=== PATIENT | female | born 2000 | race African-American/Black ===

== ENCOUNTER 2020-06-08 17:43 | Emergency (ER) | payer OTHER ==
[2020-06-08 17:56] VITALS: BP 105/72; PULSE 85; TEMP 98.8; BMI 22.4
--- NOTE | 2020-06-08 17:57 | PDOC ---
Rapid Medical Evaluation Time Seen by Provider: 06/08/20 17:53 Medical Evaluation: Allergies Allergy/AdvReac Type Severity Reaction Status Date / Time No Known Allergies Allergy Verified 06/08/20 17:53 06/08/20 17:54 CC: chest tightness, fatigue, sob, currently menstruating (heavy), denies anemia Exam: vss, speaking full sentences, Plan: ekg, labs, urine Discharge Disposition - Diagnosis Chest tightness - Referrals - Patient Instructions - Post Discharge Activity
[2020-06-08 18:52] LABS: BASO % 1.1 % (0-2.0); EOS % 1.5 % (0-4.5); HEMATOCRIT 38.9 % (32.4-45.2); HEMOGLOBIN 12.7 GM/dL (10.7-15.3); LYMPH % 35.6 % (8-40); MCH 31.7 pg (25.7-33.7); MCHC 32.7 g/dl (32.0-36.0); MEAN CELL VOLUME 97.2 fl (80-96); MEAN PLT VOLUME 8.5 fl (7.5-11.1); MONO % 10.4 % (3.8-10.2); NEUT % 51.4 % (42.8-82.8); PLATELET COUNT 379 K/MM3 (134-434); RBC 4.01 M/mm3 (3.60-5.2); RDW 13.1 % (11.6-15.6); WHITE BLOOD COUNT 8.8 K/mm3 (4.0-10.0)
[2020-06-08 18:58] LABS: HCG,QUALITATIVE URINE Negative
[2020-06-08 18:59] LABS: EPI CELLS 29 /uL (0-25.1); HYALINE CASTS 6 /uL (0-3.1); PH,URINE 6.5 (5.0-8.0); URINE APPEARANCE CLOUDY; URINE BACTERIA >9,000 /uL (0-1359); URINE BILIRUBIN NEGATIVE (NEGATIVE); URINE COLOR YELLOW; URINE GLUCOSE (UA) NEGATIVE (NEGATIVE); URINE KETONE TRACE (NEGATIVE); URINE LEUK ESTERASE 1+ (NEGATIVE); URINE NITRITE POSITIVE (NEGATIVE); URINE PROTEIN TRACE (NEGATIVE); URINE RBC 18 /uL (0-23.9); URINE WBC 31 /uL (0-25.8)
[2020-06-08 19:16] LABS: ALBUMIN 3.6 g/dl (3.4-5.0); ALK PHOS 69 U/L (45-117); ANION GAP 6 MMOL/L (8-16); BILIRUBIN,TOTAL 0.4 mg/dL (0.2-1); BLOOD UREA NITROGEN 12.7 mg/dL (7-18); CALCIUM 9.3 mg/dL (8.5-10.1); CHLORIDE 106 mmol/L (98-107); CO2 28 mmol/L (21-32); CREATININE 0.7 mg/dL (0.55-1.3); GLUCOSE,RANDOM 86 mg/dL (74-106); POTASSIUM 3.6 mmol/L (3.5-5.1); SGOT/AST 17 U/L (15-37); SGPT/ALT 21 U/L (13-61); SODIUM 139 mmol/L (136-145); TOT PROT 7.6 g/dl (6.4-8.2)
--- NOTE | 2020-06-08 19:27 | PDOC ---
History of Present Illness - General Chief Complaint: Chest Pain Stated Complaint: SOB Time Seen by Provider: 06/08/20 17:53 History Source: Patient - History of Present Illness Initial Comments: 06/08/20 19:52 19-year-old female complaining of midsternal chest pain for the last 2 days. Denies fever/chills. Patient reports that she has a history of asthma has not had a asthma exacerbation for the last 5 years. Denies fever/chills. Patient is a healthcare worker. Past History - Medical History Allergies/Adverse Reactions: Allergies Allergy/AdvReac Type Severity Reaction Status Date / Time No Known Allergies Allergy Verified 06/08/20 17:53 Home Medications: Ambulatory Orders Cephalexin Monohydrate [Keflex -] 500 mg PO BID #14 capsule 06/08/20 Asthma: Yes COPD: No - Reproductive History Is Patient Now?: No - Immunization History Immunization Up to Date: Yes - Psycho-Social/Smoking History Smoking History: Never smoked - Substance Abuse Hx (Audit-C & DAST Scrn) How often the patient has a drink containing alcohol: Never Score: In Men: 4 or > Positive; In Women: 3 or > Positive: 0 Screen Result (Pos requires Nsg. Audit-10AR): Negative In the last yr the pt used illegal drug/Rx for NonMed reason: No Score: Yes response is considered Positive: 0 Screen Result (Positive result requires Nsg. DAST-10): Negative Review of Systems - Review of Systems Able to Perform ROS?: Yes Is the patient limited Faroese proficient: No Constitutional: No: Symptoms Reported, See HPI, Chills, Diaphoresis, Fever, Loss of Appetite, Malaise, Night Sweats, Weakness, Weight Stable, Unintentional Wgt. Loss, Unexplained wgt Loss, Other Cardiac (ROS): Yes: Chest Pain, Chest Tightness *Physical Exam - Vital Signs Last Vital Signs Temp Pulse Resp BP Pulse Ox 98.8 F 85 20 105/72 100 06/08/20 17:53 06/08/20 17:53 06/08/20 17:53 06/08/20 17:53 06/08/20 17:53 - Physical Exam General Appearance: Yes: Appropriately Dressed Respiratory/Chest: positive: Lungs Clear, Normal Breath Sounds Cardiovascular: positive: Regular Rhythm, Regular Rate Gastrointestinal/Abdominal: positive: Normal Bowel Sounds, Soft. negative: Tender Musculoskeletal: positive: Normal Inspection Extremity: positive: Normal Capillary Refill, Normal Inspection, Normal Range of Motion Integumentary: positive: Normal Color, Dry, Warm Neurologic: positive: Fully Oriented, Alert, Normal Mood/Affect ED Treatment Course - LABORATORY CBC & Chemistry Diagram: 06/08/20 18:45 06/08/20 18:45 - ADDITIONAL ORDERS Additional order review: Laboratory Results 06/08/20 06/08/20 18:45 18:45 Sodium 139 Potassium 3.6 Chloride 106 Carbon Dioxide 28 Anion Gap 6 L BUN 12.7 Creatinine 0.7 Est GFR (CKD-EPI)AfAm 144.56 Est GFR (CKD-EPI)NonAf 124.72 Random Glucose 86 Calcium 9.3 Total Bilirubin 0.4 AST 17 ALT 21 Alkaline Phosphatase 69 Creatine Kinase 120 Troponin I < 0.02 Total Protein 7.6 Albumin 3.6 Urine Color Yellow Urine Appearance Cloudy Urine pH 6.5 Ur Specific [place] 1.029 Urine Protein Trace Urine Glucose (UA) Negative Urine Ketones Trace H Urine Blood 2+ H Urine Nitrite Positive H Urine Bilirubin Negative Urine Urobilinogen 1.0 Ur Leukocyte Esterase 1+ H Urine WBC (Auto) 31 Urine RBC (Auto) 18 Urine Casts (Auto) 6 U Epithel Cells (Auto) 29 Urine Bacteria (Auto) >9,000 Urine HCG, Qual Negative 06/08/20 18:45 RBC 4.01 MCV 97.2 H MCHC 32.7 RDW 13.1 MPV 8.5 Neutrophils % 51.4 Lymphocytes % 35.6 Monocytes % 10.4 H Eosinophils % 1.5 Basophils % 1.1 - RADIOLOGY Radiology Studies Ordered: Category Date Time Status CHEST PA & LAT [RAD] Stat Radiology 06/08/20 19:27 Taken - Medications Given in the ED: ED Medications Discontinued Medications Generic Name Dose Route Start Last Admin Trade Name Freq PRN Reason Stop Dose Admin Albuterol Sulfate 2 puff 06/08/20 20:29 06/08/20 21:44 Ventolin Hfa Inhaler - IH 06/08/20 20:30 2 puff ONCE ONE Administration Medical Decision Making - Medical Decision Making A: chest tightness ; suspected covid UTI P: labs chest xray ua: nitrite + > 9000 bacteria Discharge - Discharge Information Problems reviewed: Yes Clinical Impression/Diagnosis: Chest tightness, Suspected 2019 novel coronavirus infection UTI (urinary tract infection) Qualifiers: Urinary tract infection type: acute cystitis Hematuria presence: without hematuria Qualified Code(s): N30.00 - Acute cystitis without hematuria Disposition: HOME - Additional Discharge Information Prescriptions: Cephalexin Monohydrate [Keflex -] 500 mg PO BID #14 capsule - Follow up/Referral - Patient Discharge Instructions Patient Printed Discharge Instructions: [facility]-Coronavirus Instructions Additional Instructions: use albuterol every 4 hours as needed for chest tightness. drink plenty of fluids follow up with up your doctor as soon as possible return to the ER for any wors ening symptoms. - Post Discharge Activity Work/Back to School Note: Back to Work
[2020-06-08] MEDS ORDERED: ALBUTEROL SO4 HFA INHALER IH ONE ×2 (20:29→20:35)
--- NOTE | 2020-06-09 10:38 | EKG ---
Test Reason : Blood Pressure : / mmHG Vent. Rate : 073 BPM Atrial Rate : 073 BPM P-R Int : 112 ms QRS Dur : 082 ms QT Int : 376 ms P-R-T Axes : 040 071 036 degrees QTc Int : 414 ms NORMAL SINUS RHYTHM WITH SINUS ARRHYTHMIA NORMAL ECG NO PREVIOUS ECGS AVAILABLE Confirmed by Denilson Harvey MD ([id number]) on 06/09/2020 10:36:56 AM Referred By: Confirmed By:Denilson Harvey MD
== END 2020-06-08 21:45 | disposition home or self-care (01) ==
LOC: JER 17:43
PROC: 3E0F7GC Introduction of Other Therapeutic Substance into Respiratory Tract, Via Natural or Artificial Opening (ICD-10-PCS; principal; 2020-06-08)
DX: R06.02 Shortness of breath (principal); N30.00 Acute cystitis without hematuria
CPT/HCPCS: 36415; 71046-TC-FY; 80053; 81003; 82550; 84484; 84703; 85025; 93005; 93010; 99285-25; U0003

== ENCOUNTER 2020-08-28 15:36 | Emergency (ER) | payer OTHER ==
[2020-08-28 16:23] VITALS: BP 105/62; PULSE 74; TEMP 98.4; BMI 22.0
== END 2020-08-28 17:08 | disposition home or self-care (01) ==
LOC: JERFT 15:36
DX: R50.9 Fever, unspecified (principal)
CPT/HCPCS: 99283-25

== ENCOUNTER 2020-09-03 23:31 | Emergency (ER) | payer OTHER ==
[2020-09-03 23:35] VITALS: BP 116/65; PULSE 90; TEMP 99.2; BMI 19.5
== END 2020-09-04 | disposition home or self-care (01) ==
LOC: JER 23:31
DX: J06.9 Acute upper respiratory infection, unspecified (principal); Z11.59 Encounter for screening for other viral diseases
CPT/HCPCS: 99284-25; C9803; U0003